=== PATIENT | female | born 1965 | race Two or more races ===

== ENCOUNTER 2025-01-09 15:34 | Inpatient (IN) | payer OTHER ==
[~2025-01-09] VITALS: Ht 154.9 cm; Wt 58.1 kg
[2025-01-09 15:54] LABS: BASOPHILS # (AUTO) 0.1 K/UL (0.0-0.2); EOSINOPHILS # (AUTO) 0.1 K/uL (0.0-0.7); EOSINOPHILS % (AUTO) 0.9 % (0.0-7.0); HEMATOCRIT 39.6 % (31.2-41.9); HEMOGLOBIN 13.3 g/dL (10.9-14.3); LYMPHOCYTES # (AUTO) 3.1 K/uL (0.8-4.8); LYMPHOCYTES % (AUTO) 40.2 % (20.5-51.5); MEAN CORPUSCULAR HEMOGLOBIN 29.7 uug (24.7-32.8); MEAN CORPUSCULAR HGB CONC 34 g/dL (32.3-35.6); MEAN CORPUSCULAR VOLUME 88.6 fL (75.5-95.3); MONOCYTES # (AUTO) 0.4 K/uL (0.1-1.30); MONOCYTES % (AUTO) 5.6 % (0.0-11.0); NEUTROPHILS # (AUTO) 4.1 K/uL (1.8-8.9); NEUTROPHILS % (AUTO) 52.3 % (38.5-71.5); PLATELET COUNT (AUTO) 281 K/uL (179-408); RED BLOOD CELL COUNT(AUTO) 4.47 MIL/uL (3.63-4.92); RED CELL DISTRIBUTION WIDTH 14.7 % (12.3-17.7); WHITE BLOOD COUNT (AUTO) 7.8 K/uL (3.8-11.8)
[2025-01-09 16:06] LABS: CALCIUM 9.8 mg/dL (8.5-10.1); CARBON DIOXIDE 26 mmol/L (21-32); CHLORIDE 101 mmol/L (98-107); CREATININE 0.8 mg/dL (0.6-1.3); GLUCOSE 109 mg/dL (74-106); POTASSIUM 4.7 mmol/L (3.5-5.1); SODIUM SERUM 138 mmol/L (136-145); UREA NITROGEN, BLOOD 12 mg/dL (7-18)
[2025-01-09] MEDS ORDERED: ONDANSETRON 4 MG/2 ML VIAL ONE (16:14)
[2025-01-09] MEDS: ONDANSETRON 4 MG/2 ML VIAL IV ONE (16:16)
[2025-01-09] MEDS ORDERED: SWABABLE VALVE TRANSFER SET EA MC ONE (16:28)
[2025-01-09] MEDS ORDERED: IOHEXOL 350 100 ML INFUS..BTL ONE (16:28)
[2025-01-09] MEDS ORDERED: IV NORMAL SALINE 500 ML IV ONE (16:28)
[2025-01-09] MEDS: IV NORMAL SALINE 1000 ML BAG IV ONE (17:16)
[2025-01-09 17:20] LABS: *BILIRUBIN,URIN NEGATIVE (NEGATIVE); *BLOOD, URINE NEGATIVE (NEGATIVE); *CLARITY,URINE CLEAR (CLEAR); *COLOR,URINE YELLOW (YELLOW); *KETONES,URINE NEGATIVE (NEGATIVE); *PROTEIN,URINE NEGATIVE (NEGATIVE); *UROBILINOGEN,URINE 0.2 E.U./dl (NORMAL); LEUKOCYTE ESTERASE ,URINE NEGATIVE (NEGATIVE); NITRITE, URINE NEGATIVE (NEGATIVE); UGLUCOSE NEGATIVE (NEGATIVE)
[2025-01-09] MEDS ORDERED: DEXAMETHASONE SOD PHOSPHATE 10 MG INJ ONE (17:29)
[2025-01-09] MEDS ORDERED: diphenhydrAMINE 50 MG/1 ML VIAL ONE (17:29)
[2025-01-09] MEDS: diphenhydrAMINE 50 MG/1 ML VIAL IV ONE (17:30)
[2025-01-09] MEDS ORDERED: METOCLOPRAMIDE HCL 10 MG/2 ML VIAL ONE (17:30)
[2025-01-09] MEDS: DEXAMETHASONE SOD PHOSPHATE 4 MG INJ IV ONE (17:32)
[2025-01-09] MEDS ORDERED: ATOR40TA PO (17:34)
[2025-01-09] MEDS ORDERED: MOUNJARO SQ (17:34)
[2025-01-09] MEDS ORDERED: LISI-782 PO (17:34)
[2025-01-09] MEDS ORDERED: ASPI-495 PO (17:34)
[2025-01-09] MEDS: METOCLOPRAMIDE HCL 10 MG/2 ML VIAL IV ONE (17:35)
[2025-01-09] MEDS ORDERED: KETOROLAC TROMETHAMINE 15 MG INJ ONE (17:36)
[2025-01-09] MEDS: ACETAMINOPHEN 500 MG TABLET PO ONE (17:38)
[2025-01-09] MEDS: KETOROLAC TROMETHAMINE 15 MG INJ IVP ONE (17:38)
[2025-01-09 18:42] VITALS: BP 120/71; TEMP 97.6; O2SAT 99
[2025-01-09] MEDS ORDERED: TEMAZEPAM 15 MG CAPSULE PO PRN (19:00)
[2025-01-09 19:36] VITALS: BP 116/57; TEMP 97.7; O2SAT 98
[2025-01-09] MEDS: ATORVASTATIN 40 MG TABLET PO SCH (20:05)
[2025-01-09] MEDS: ASPIRIN EC 81 MG TABLET.DR PO ONE (20:05)
[2025-01-09] MEDS: ENOXAPARIN SODIUM 40 MG/0.4 ML DISP.SYRIN SQ SCH (20:06)
[2025-01-09] MEDS ORDERED: SUMATRIPTAN SUCCINATE 6 MG/0.5 ML VIAL SQ ONE (22:12)
[2025-01-09] MEDS: SUMATRIPTAN SUCCINATE 6 MG/0.5 ML VIAL SQ ONE (22:18)
[2025-01-09 23:44] VITALS: BP 112/67; TEMP 98.5; O2SAT 98
[2025-01-10] MEDS: MORPHINE SULFATE 2 MG/1 ML DISP.SYRIN IV PRN (05:42)
[2025-01-10 06:05] VITALS: BP 107/68; TEMP 98.1; O2SAT 100
[2025-01-10] MEDS: PANTOPRAZOLE SODIUM 40 MG TABLET.DR PO SCH (06:13)
[2025-01-10] MEDS ORDERED: TEMAZEPAM 7.5 MG CAPSULE PO PRN (06:15)
[2025-01-10 06:50] LABS: BASOPHILS % (AUTO) 0.2 % (0.0-2.0); HEMATOCRIT 38.1 % (31.2-41.9); HEMOGLOBIN 13.2 g/dL (10.9-14.3); LYMPHOCYTES # (AUTO) 1.2 K/uL (0.8-4.8); LYMPHOCYTES % (AUTO) 12.9 % (20.5-51.5); MEAN CORPUSCULAR HEMOGLOBIN 30.7 uug (24.7-32.8); MEAN CORPUSCULAR HGB CONC 35 g/dL (32.3-35.6); MEAN CORPUSCULAR VOLUME 88.8 fL (75.5-95.3); MONOCYTES # (AUTO) 0.1 K/uL (0.1-1.30); NEUTROPHILS # (AUTO) 7.8 K/uL (1.8-8.9); NEUTROPHILS % (AUTO) 85.9 % (38.5-71.5); PLATELET COUNT (AUTO) 263 K/uL (179-408); RED BLOOD CELL COUNT(AUTO) 4.29 MIL/uL (3.63-4.92); RED CELL DISTRIBUTION WIDTH 14.4 % (12.3-17.7)
[2025-01-10 06:57] LABS: DIFFERENTIAL COMMENT 1
[2025-01-10 07:14] LABS: ALANINE AMINOTRANSFERASE 37 U/L (14-59); ALBUMIN 3.5 g/dL (3.4-5.0); ALKALINE PHOSPHATASE 76 U/L (50-136); ASPARTATE AMINOTRANSFERASE 14 U/L (15-37); BILIRUBIN,TOTAL 0.2 mg/dL (0.2-1.0); CARBON DIOXIDE 23 mmol/L (21-32); CHLORIDE 101 mmol/L (98-107); CHOLESTEROL 243 mg/dL (<200); CREATININE 0.9 mg/dL (0.6-1.3); GLUCOSE 268 mg/dL (74-106); HDL CHOLESTEROL 50 mg/dL (40-60); MAGNESIUM 2.1 mg/dL (1.8-2.4); PHOSPHOROUS 2.5 mg/dL (2.5-4.9); POTASSIUM 4.1 mmol/L (3.5-5.1); SODIUM SERUM 134 mmol/L (136-145); TRIGLYCERIDES 167 MG/DL (30-150); UREA NITROGEN, BLOOD 19 mg/dL (7-18)
[2025-01-10 07:45] VITALS: BP 121/70; TEMP 98.2; O2SAT 97
[2025-01-10] MEDS: ASPIRIN EC 81 MG TABLET.DR PO SCH (08:50)
[2025-01-10] MEDS: ONDANSETRON 4 MG/2 ML VIAL IV PRN (08:50)
[2025-01-10] MEDS ORDERED: DEXTROSE 50% 50 ML DISP.SYRIN IV PRN (09:15)
[2025-01-10 10:08] VITALS: BP 112/68; TEMP 98.2; O2SAT 97
[2025-01-10] MEDS: BLOOD SUGAR DIAGNOSTIC 1 EACH STRIP VI SCH (10:58)
[2025-01-10] MEDS: INSULIN REGULAR, HUMAN 1000 UNIT/10 ML VIAL SQ PRN (10:59)
[2025-01-10] MEDS ORDERED: CHOL100062 PO (11:44)
[2025-01-10] MEDS ORDERED: HYDR-500 PO (11:46)
[2025-01-10] MEDS ORDERED: VARENICLINE (11:47)
[2025-01-10 15:45] VITALS: BP 135/75; TEMP 97.8; O2SAT 98
[2025-01-10 19:00] VITALS: BP 112/63; TEMP 98.7; O2SAT 95
[2025-01-11] VITALS: BP 96/63; TEMP 98.3; O2SAT 96
[2025-01-11 04:00] VITALS: BP 110/65; TEMP 98.7; O2SAT 99
[2025-01-11 07:36] VITALS: BP 113/66; TEMP 98.8; O2SAT 99
[2025-01-11] MEDS: FLUOXETINE HCL 10 MG CAPSULE PO SCH (10:23)
[2025-01-11 11:15] VITALS: BP 116/72; TEMP 99; O2SAT 96
[2025-01-11] MEDS ORDERED: IOHEXOL 300MG/ML 100 ML INFUS..BTL ONE (11:15)
[2025-01-11] MEDS ORDERED: SWABABLE VALVE TRANSFER SET EA MC ONE (11:15)
[2025-01-11] MEDS ORDERED: IV NORMAL SALINE 250 ML IV ONE (11:15)
[2025-01-11 15:39] VITALS: BP 107/63; TEMP 98.9; O2SAT 96
[2025-01-11 19:58] VITALS: BP 111/68; TEMP 99.3; O2SAT 97
[2025-01-11] MEDS: ACETAMINOPHEN 325 MG TABLET PO PRN (20:43)
[2025-01-11] MEDS: MAGNESIUM HYDROXIDE 30 ML LIQUID UDC PO PRN (20:43)
[2025-01-12 04:57] VITALS: BP 91/60; TEMP 97.7; O2SAT 97
[2025-01-12] MEDS ORDERED: SUMA100T16 PO (11:02)
[2025-01-12] MEDS ORDERED: PANT40TA2 PO (11:08)
[2025-01-12 12:00] VITALS: BP 102/66; TEMP 97.5; O2SAT 98
== END 2025-01-12 16:00 | disposition home or self-care (01) | DRG 54 ==
LOC: ER 15:34 → TELE3 18:21 → MEDSURG3 01-11 18:59
PROVIDERS: ADMIT Internal Medicine; ATTEND Internal Medicine
DX: G43.109 Migraine with aura, not intractable, without status migrainosus (principal); G45.9 Transient cerebral ischemic attack, unspecified; E78.5 Hyperlipidemia, unspecified; K29.00 Acute gastritis without bleeding; R73.03 Prediabetes; I10 Essential (primary) hypertension; R20.0 Anesthesia of skin; R53.1 Weakness
CPT/HCPCS: 36415; 36600; 70450; 70496; 70551; 71045; 72131; 83735; 83921; 84100; 84443; 84484; 85025; 85730; 93307; G0378; J1100; J1200; J1650; J1815; J1885; J2270; J2405; J2765; J3030; J7040; Q9967

== ENCOUNTER 2025-03-23 15:09 | Emergency (ER) | payer OTHER ==
[~2025-03-23] VITALS: Ht 154.9 cm; Wt 54.4 kg
[2025-03-23] MEDS: ACETAMINOPHEN/CODEINE 300-30 MG TABLET PO ONE (14:40)
[~2025-03-23 15:09] MED LIST: ASPI-495 PO; ATOR40TA PO; CHOL100062 PO; HYDR-500 PO; LISI-782 PO; PANT40TA2 PO; SUMA100T16 PO; VARENICLINE
[2025-03-23 15:20] VITALS: BP 116/71
[2025-03-23] MEDS ORDERED: ACETAMINOPHEN/CODEINE 300-30 MG TABLET ONE (15:48)
[2025-03-23 15:57] LABS: PLATELET COUNT (AUTO) 294 K/uL (179-408); RED BLOOD CELL COUNT(AUTO) 4.17 MIL/uL (3.63-4.92); RED CELL DISTRIBUTION WIDTH 13.2 % (12.3-17.7); WHITE BLOOD COUNT (AUTO) 5.7 K/uL (3.8-11.8)
[2025-03-23 16:08] LABS: CREATININE 0.7 mg/dL (0.6-1.3); SODIUM SERUM 141.0 mmol/L (136-145); UREA NITROGEN, BLOOD 11.0 mg/dL (7-18)
[2025-03-23] MEDS ORDERED: ACET1TAB23 PO (17:41)
[2025-03-23 17:47] VITALS: BP 119/77; O2SAT 98
== END 2025-03-23 17:48 | disposition home or self-care (01) ==
LOC: ER 15:09
DX: J20.8 Acute bronchitis due to other specified organisms (principal); B97.89 Other viral agents as the cause of diseases classified elsewhere; E11.9 Type 2 diabetes mellitus without complications; E78.5 Hyperlipidemia, unspecified; I51.9 Heart disease, unspecified; Z79.82 Long term (current) use of aspirin; Z79.899 Other long term (current) drug therapy; Z86.16 Personal history of COVID-19; Z90.49 Acquired absence of other specified parts of digestive tract; Z90.710 Acquired absence of both cervix and uterus; Z20.822 Contact with and (suspected) exposure to COVID-19
CPT/HCPCS: 36415; 71045; 85025; A4606; A4663

== ENCOUNTER 2025-05-08 12:29 | Emergency (ER) | payer OTHER ==
[~2025-05-08] VITALS: Ht 154.9 cm; Wt 54.4 kg
[~2025-05-08 12:29] MED LIST changes: +ACET1TAB23 PO
[2025-05-08 12:49] VITALS: BP 126/76
[2025-05-08 13:07] LABS: *BILIRUBIN,URIN NEGATIVE (NEGATIVE); *BLOOD, URINE NEGATIVE (NEGATIVE); *CLARITY,URINE CLEAR (CLEAR); *COLOR,URINE YELLOW (YELLOW); *KETONES,URINE NEGATIVE (NEGATIVE); *PROTEIN,URINE NEGATIVE (NEGATIVE); *UROBILINOGEN,URINE 0.2 E.U./dl (NORMAL); LEUKOCYTE ESTERASE ,URINE TRACE (NEGATIVE); NITRITE, URINE NEGATIVE (NEGATIVE); UGLUCOSE NEGATIVE (NEGATIVE)
[2025-05-08] MEDS ORDERED: ONDANSETRON 4 MG/2 ML VIAL ONE (15:13)
[2025-05-08] MEDS ORDERED: HYDROMORPHONE 1 MG/1 ML DISP.SYRIN ONE (15:14)
[2025-05-08] MEDS: ONDANSETRON 4 MG/2 ML VIAL IV ONE (15:29)
[2025-05-08] MEDS: HYDROMORPHONE 1 MG/1 ML DISP.SYRIN IV ONE (15:29)
[2025-05-08] MEDS: IV NORMAL SALINE 1000 ML BAG IV ONE (15:29)
[2025-05-08 15:43] LABS: PLATELET COUNT (AUTO) 281 K/uL (179-408); RED BLOOD CELL COUNT(AUTO) 4.65 MIL/uL (3.63-4.92); RED CELL DISTRIBUTION WIDTH 14.0 % (12.3-17.7); WHITE BLOOD COUNT (AUTO) 6.7 K/uL (3.8-11.8)
[2025-05-08 15:46] LABS: CREATININE 0.7 mg/dL (0.6-1.3); SODIUM SERUM 138.0 mmol/L (136-145); UREA NITROGEN, BLOOD 14.0 mg/dL (7-18)
[2025-05-08 15:52] LABS: ASPARTATE AMINOTRANSFERASE 16.0 U/L (15-37); TOTAL PROTEIN, SERUM 7.8 g/dL (6.4-8.2)
[2025-05-08] MEDS ORDERED: SULF1TAB48 PO (16:34)
[2025-05-08] MEDS ORDERED: OXYC-128 PO (16:34)
[2025-05-08 16:58] VITALS: BP 126/76; O2SAT 99
== END 2025-05-08 16:59 | disposition home or self-care (01) ==
LOC: ER 12:29
DX: R10.9 Unspecified abdominal pain (principal); M54.50 Low back pain, unspecified; R30.0 Dysuria; E11.9 Type 2 diabetes mellitus without complications; E78.5 Hyperlipidemia, unspecified; I51.9 Heart disease, unspecified; Z79.82 Long term (current) use of aspirin; Z79.899 Other long term (current) drug therapy; Z90.49 Acquired absence of other specified parts of digestive tract; Z90.710 Acquired absence of both cervix and uterus
CPT/HCPCS: 99285; 74176; 96374; 96361; 96375; 80076; 80048; 81001; 85025; 36415; 93005; 83605; J2405; J1171; J7040; A4606; A4663

== ENCOUNTER 2025-06-10 13:29 | Emergency (ER) | payer OTHER ==
[~2025-06-10] VITALS: Ht 160 cm; Wt 50.8 kg
[~2025-06-10 13:29] MED LIST changes: -ACET1TAB23 PO; +ACET1TAB93 PO; -LISI-782 PO; +LISI5TAB24 PO; +OXYC-128 PO; +SULF1TAB48 PO
[2025-06-10 13:34] VITALS: BP 110/41
[2025-06-10] MEDS ORDERED: OXYCODONE/APAP 5-325 MG TABLET ONE (14:12)
[2025-06-10] MEDS: OXYCODONE/APAP 5-325 MG TABLET PO ONE (14:13)
[2025-06-10] MEDS ORDERED: KETOROLAC TROMETHAMINE 30 MG INJ ONE (15:40)
[2025-06-10] MEDS: KETOROLAC TROMETHAMINE 30 MG INJ IM ONE (15:45)
[2025-06-10] MEDS ORDERED: NAPR-1194 PO (17:58)
[2025-06-10] MEDS ORDERED: OXYC-128 PO (17:58)
[2025-06-10 18:21] VITALS: BP 119/56; O2SAT 99
== END 2025-06-10 18:21 | disposition home or self-care (01) ==
LOC: ER 13:47
DX: M25.512 Pain in left shoulder (principal); M54.6 Pain in thoracic spine; M54.2 Cervicalgia; E11.9 Type 2 diabetes mellitus without complications; E78.5 Hyperlipidemia, unspecified; I51.9 Heart disease, unspecified; M43.12 Spondylolisthesis, cervical region; Z79.82 Long term (current) use of aspirin; Z79.899 Other long term (current) drug therapy; Z90.49 Acquired absence of other specified parts of digestive tract; Z90.710 Acquired absence of both cervix and uterus
CPT/HCPCS: 99285; 72125; 73030; 72128; 96372; J1885; A4606; A4663